=== PATIENT | female | born 1960 | race Caucasian/White ===

== ENCOUNTER 2018-04-30 11:15 | Inpatient (IN) | payer OTHER ==
[~2018-04-30] VITALS: Ht 152.4 cm; Wt 65.8 kg
[~2018-04-30 11:15] MED LIST: LIPITOR40 MG PO; SYNTHROID137 MCG PO; TOPROL XL25 MG PO
[2018-05-22] MEDS ORDERED: COLACE100 MG PO (11:09)
[2018-05-22] MEDS ORDERED: PERCOCET 5-3251 EACH PO (11:10)
[2018-05-22] MEDS ORDERED: CLONAZEPAM1 MG PO (11:10)
== END 2018-05-23 12:30 | disposition home or self-care (01) | DRG 455 ==
LOC: ADM 11:15 → EDSTATUS 11:15 → O/R 05-22 06:10 → SURH 05-22 10:15
PROVIDERS: ADMIT Orthopaedic Surgery Orthopaedic Surgery of the Spine
PROC: 0RG2071 Fusion of 2 or more Cervical Vertebral Joints with Autologous Tissue Substitute, Posterior Approach, Posterior Column, Open Approach (ICD-10-PCS; 2018-05-22)
PROC: 0RT30ZZ Resection of Cervical Vertebral Disc, Open Approach (ICD-10-PCS; 2018-05-22)
PROC: 07DS3ZZ Extraction of Vertebral Bone Marrow, Percutaneous Approach (ICD-10-PCS; 2018-05-22)
PROC: 0RG20A0 Fusion of 2 or more Cervical Vertebral Joints with Interbody Fusion Device, Anterior Approach, Anterior Column, Open Approach (ICD-10-PCS; principal; 2018-05-22 10:15)
DX: M47.22 Other spondylosis with radiculopathy, cervical region (principal); M50.121 Cervical disc disorder at C4-C5 level with radiculopathy; I10 Essential (primary) hypertension; E03.8 Other specified hypothyroidism